=== PATIENT | female | born 2000 | race Caucasian/White ===

== ENCOUNTER 2025-03-04 07:55 | Emergency (ER) | payer BC, MEDICAID ==
[~2025-03-04] VITALS: Ht 165.1 cm; Wt 95.3 kg
[2025-03-04 07:56] VITALS: O2SAT 98
[2025-03-04 08:14] VITALS: TEMP 36.7
[2025-03-04] MEDS: KETOROLAC 30MG/ML VIAL IM STA (08:40)
[2025-03-04] MEDS: DIPHENHYDRAMINE 25MG CAPSULE PO ONE (08:41)
[2025-03-04] MEDS: PROCHLORPERAZINE 10MG/2ML VIAL IM ONE (08:41)
[2025-03-04] MEDS ORDERED: PROC10TA65 MT (09:13)
[2025-03-04] MEDS ORDERED: DIPH25CA83 MT (09:13)
[2025-03-04 09:22] VITALS: BP 123/72; PULSE 82; RESP 16; O2SAT 100
== END 2025-03-04 09:25 | disposition home or self-care (01) ==
LOC: ER 07:55
DX: R51.9 Headache, unspecified (principal)
CPT/HCPCS: 81025; 96372; 99284; Q0163; J1885; J0780; Z7610